=== PATIENT | female | born 1975 | race Caucasian/White ===

== ENCOUNTER 2016-10-05 10:10 | Emergency (ER) | payer BC, OTHER ==
--- NOTE | 2016-10-05 10:50 | EDDOCDS ---
Physician Documentation [facility] Name: Roxann Downey Age: 41 yrs Sex: Female : 1975 Arrival Date: 10/05/2016 Time: 10:10 Bed Triage 1 Private MD: Aparna Sinclair PA-C. Disposition: 10/05/16 10:44 Discharged to Home/Self Care. Impression: Acute upper respiratory infections of multiple and unspecified sites, Cough. - Condition is Stable. - Discharge Instructions: Upper Respiratory Infection, Adult, Cough, Adult. - Prescriptions for Prednisone 20 mg Oral Tablet - take 1 tablet by ORAL route once daily for 5 days; 5 tablet. Guaifenesin- DM 10-100 mg/5 mL Oral Liquid - take 10 milliliter by ORAL route every 6 hours As needed; 200 milliliter. benzonatate 200 mg Oral Capsule - take 1 capsule by ORAL route 3 times per day As needed; 30 capsule. - Medication Reconciliation, Local Pharmacy Hours, Work Release Form - 2 day form. - Follow up: Emergency Department; When: As needed. Follow up: Aparna Sinclair; When: Call to arrange an appointment; Reason: Wound/Symptom Recheck, Recheck today's complaints, Continuance of care. - Problem is new. - Symptoms are unchanged. Historical: - Allergies: PENICILLINS; - Home Meds: 1. none - PMHx: none; - PSHx: none; - Social history: Smoking status: Patient states was never smoker of tobacco. No barriers to communication noted, The patient speaks fluent Chilean, Speaks appropriately for age. - Family history: Not pertinent. - : The pt / caregiver states he / she is not on anticoagulants. Home medication list is obtained from the patient. - Exposure Risk Screening:: None identified. 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 4 in. (162.56 cm); Pain 7/10; 10:12 Body Mass Index 27.64 (73.03 kg, 162.56 cm) dem1 MDM: 10:48 Financial registration complete. pm4 Signatures: Graciela Song,RN RN kr3 Selvin Mauro, LISET PAAkilahC cc10 Bautista Pandey, Reg Reg pm4 MTDD
--- NOTE | 2016-10-05 10:50 | EDDOCDS ---
Nurse's Notes [facility] Name: Roxann Downey Age: 41 yrs Sex: Female : 1975 Arrival Date: 10/05/2016 Time: 10:10 Bed Triage 1 Private MD: Aparna Sinclair PA-C. Diagnosis: Acute upper respiratory infections of multiple and unspecified sites;Cough Presentation: 10/05 10:15 Presenting complaint: Patient states: cough began last night. kr3 10:15 Adult Sepsis Screening: The patient does not have new or worsening altered mentation. kr3 Patient's respiratory rate is less than 22. Systolic blood pressure is greater than 100. Patient has a qSOFA score of 0- Negative Sepsis Screen. Suicide/Homicide risk assessment- the patient denies having any suicidal and/or homicidal ideations and does not present with any other emotional, behavioral or mental health complaints. 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 Transition of care: patient was not received from another setting of care. 10:15 Acuity: ROXANN Level 4 kr3 10:15 Method Of Arrival: Walkin/Carried/Asstd kr3 Triage Assessment: 10:16 General: Appears in no apparent distress, comfortable, Behavior is cooperative. Pain: kr3 Pain currently is 0 out of 10 on a pain scale. At worst was 6 out of 10 on a pain scale. Aggravated by cough or breathes. HIV screening NA for this visit Offered previously. Respiratory: Onset: The symptoms/episode began/occurred yesterday, Airway is patent Respiratory effort is even, unlabored, Reports shortness of breath on exertion cough that is productive, pain with cough. Derm: Skin is normal. 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 none - PMHx: none; - PSHx: none; - Social history: Smoking status: Patient states was never smoker of tobacco. No barriers to communication noted, The patient speaks fluent Beninese, Speaks appropriately for age. - Family history: Not pertinent. - : The pt / caregiver states he / she is not on anticoagulants. Home medication list is obtained from the patient. - Exposure Risk Screening:: None identified. Screenin:48 Screening information is obtained from the patient. Fall risk: No risks identified. kr3 Assistance ADL's: requires no assistance with activities of daily living. Abuse/DV Screen: The patient / caregiver reports he/she is: not in a situation that causes fear, pain or injury. Nutritional screening: No deficits noted. Advance Directives: Currently, there is no health care proxy. home support is adequate. Assessment: 10:48 Cardiovascular: Chest pain is denied. Respiratory: Respiratory effort is even, kr3 unlabored, Breath sounds are clear bilaterally. Vital Signs: 10:12 BP 134 / 90; Pulse 69; Resp 18; Temp 97.3(O); Pulse Ox 100% on R/A; Weight 73.03 kg; dem1 Height 5 ft. 4 in. (162.56 cm); Pain 7/10; 10:12 Body Mass Index 27.64 (73.03 kg, 162.56 cm) dem1 Vitals: 10:12 Log In Time: October 05, 2016 at 10:10. RN notified that patient meets Red Flag dem1 criteria. ED Course: 10:12 Patient visited by Ronald Parra. dem1 10:12 Aparna Sinclair is Private Physician. dem1 10:12 Patient moved to Waiting dem1 10:16 Triage Initiated kr3 10:32 Sel[facility] cc10 10:32 Apryl Cisneros MD is Attending Physician. cc10 10:37 Patient moved to Triage 1 dsf 10:38 Patient visited by Selvin Mauro PA-C. cc10 10:38 Patient visited by Selvin Mauro PA-C. cc10 10:44 Aparna Sinclair is Referral Physician. cc10 10:48 The patient / caregiver is instructed regarding the plan of care and ED course. Patient kr3 has correct armband on for positive identification. 10:48 No IV's were initiated during this patient's visit. No procedures done that require kr3 assistance. Order Results: There are currently no results for this order. Outcome: 10:44 Discharge ordered by Provider. cc10 10:48 Discharge Assessment: patient administered narcotics - no. The following High Risk kr3 Discharge criteria are identified: None. Discharged to home ambulatory. Condition: stable. Discharge instructions given to patient, Instructed on discharge instructions, follow up and referral plans. medication usage, Demonstrated understanding of instructions, medications, Pt was receptive of discharge instructions/ teaching. Prescriptions given X 3. No special radiology studies were completed. Property sent home with patient. 10:49 Patient left the ED. sergio3 Signatures: Graciela Song,RN RN sergio3 Yanira Jordan RN RN Ronald Luther1 Selvin Mauro, PA-C PA-C cc10 MTDD
--- NOTE | 2016-10-07 11:53 | EDDOCDS ---
Nurse's Notes [facility] Name: Roxann Downey Age: 41 yrs Sex: Female : 1975 Arrival Date: 10/05/2016 Time: 10:10 Bed Triage 1 Private MD: Aparna Sinclair PA-C. Diagnosis: Acute upper respiratory infections of multiple and unspecified sites;Cough Presentation: 10/05 10:15 Presenting complaint: Patient states: cough began last night. kr3 10:15 Adult Sepsis Screening: The patient does not have new or worsening altered mentation. kr3 Patient's respiratory rate is less than 22. Systolic blood pressure is greater than 100. Patient has a qSOFA score of 0- Negative Sepsis Screen. Suicide/Homicide risk assessment- the patient denies having any suicidal and/or homicidal ideations and does not present with any other emotional, behavioral or mental health complaints. 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 Transition of care: patient was not received from another setting of care. 10:15 Acuity: ROXANN Level 4 kr3 10:15 Method Of Arrival: Walkin/Carried/Asstd kr3 Triage Assessment: 10:16 General: Appears in no apparent distress, comfortable, Behavior is cooperative. Pain: kr3 Pain currently is 0 out of 10 on a pain scale. At worst was 6 out of 10 on a pain scale. Aggravated by cough or breathes. HIV screening NA for this visit Offered previously. Respiratory: Onset: The symptoms/episode began/occurred yesterday, Airway is patent Respiratory effort is even, unlabored, Reports shortness of breath on exertion cough that is productive, pain with cough. Derm: Skin is normal. 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 none - PMHx: none; - PSHx: none; - Social history: Smoking status: Patient states was never smoker of tobacco. No barriers to communication noted, The patient speaks fluent Nauruan, Speaks appropriately for age. - Family history: Not pertinent. - : The pt / caregiver states he / she is not on anticoagulants. Home medication list is obtained from the patient. - Exposure Risk Screening:: None identified. Screenin:48 Screening information is obtained from the patient. Fall risk: No risks identified. kr3 Assistance ADL's: requires no assistance with activities of daily living. Abuse/DV Screen: The patient / caregiver reports he/she is: not in a situation that causes fear, pain or injury. Nutritional screening: No deficits noted. Advance Directives: Currently, there is no health care proxy. home support is adequate. Assessment: 10:48 Cardiovascular: Chest pain is denied. Respiratory: Respiratory effort is even, kr3 unlabored, Breath sounds are clear bilaterally. Vital Signs: 10:12 BP 134 / 90; Pulse 69; Resp 18; Temp 97.3(O); Pulse Ox 100% on R/A; Weight 73.03 kg; dem1 Height 5 ft. 4 in. (162.56 cm); Pain 7/10; 10:12 Body Mass Index 27.64 (73.03 kg, 162.56 cm) dem1 Vitals: 10:12 Log In Time: October 05, 2016 at 10:10. RN notified that patient meets Red Flag dem1 criteria. ED Course: 10:12 Patient visited by Ronald Parra. dem1 10:12 Aparna Sinclair is Private Physician. dem1 10:12 Patient moved to Waiting dem1 10:16 Triage Initiated kr3 10:32 Selvin Mauro PA-C is PHCP. cc10 10:32 Apryl Cisneros MD is Attending Physician. cc10 10:37 Patient moved to Triage 1 dsf 10:38 Patient visited by Selvin Mauro PA-C. cc10 10:38 Patient visited by Selvin Mauro PA-C. cc10 10:44 Aparna Sinclair is Referral Physician. cc10 10:48 The patient / caregiver is instructed regarding the plan of care and ED course. Patient kr3 has correct armband on for positive identification. 10:48 No IV's were initiated during this patient's visit. No procedures done that require kr3 assistance. 11:06 [facility] Payment Agreement was scanned into [employer] and attached to record. pm4 01 07:48 T-Sheet-- Draft Copy was scanned into [employer] and attached to record. gb Order Results: There are currently no results for this order. Outcome: 10/05 10:44 Discharge ordered by Provider. cc10 10:48 Discharge Assessment: patient administered narcotics - no. The following High Risk kr3 Discharge criteria are identified: None. Discharged to home ambulatory. Condition: stable. Discharge instructions given to patient, Instructed on discharge instructions, follow up and referral plans. medication usage, Demonstrated understanding of instructions, medications, Pt was receptive of discharge instructions/ teaching. Prescriptions given X 3. No special radiology studies were completed. Property sent home with patient. 10:49 Patient left the ED. kr3 Signatures: Rasheeda Rey, Reg Reg gb Graciela Song RN RN kr3 Yanira Jordan RN RN peef Ronald Parra dem1 Selvin Mauro, PA-C PA-C cc10 Bautista Pandey, Reg Reg pm4 Chart Complete MTDD
--- NOTE | 2016-10-07 11:53 | EDDOCDS ---
Physician Documentation [facility] Name: Roxann Downey Age: 41 yrs Sex: Female : 1975 Arrival Date: 10/05/2016 Time: 10:10 Bed Triage 1 Private MD: Aparna Sinclair PA-C. Disposition: 10/05/16 10:44 Discharged to Home/Self Care. Impression: Acute upper respiratory infections of multiple and unspecified sites, Cough. - Condition is Stable. - Discharge Instructions: Upper Respiratory Infection, Adult, Cough, Adult. - Prescriptions for Prednisone 20 mg Oral Tablet - take 1 tablet by ORAL route once daily for 5 days; 5 tablet. Guaifenesin- DM 10-100 mg/5 mL Oral Liquid - take 10 milliliter by ORAL route every 6 hours As needed; 200 milliliter. benzonatate 200 mg Oral Capsule - take 1 capsule by ORAL route 3 times per day As needed; 30 capsule. - Medication Reconciliation, Local Pharmacy Hours, Work Release Form - 2 day form. - Follow up: Emergency Department; When: As needed. Follow up: Aparna Sinclair; When: Call to arrange an appointment; Reason: Wound/Symptom Recheck, Recheck today's complaints, Continuance of care. - Problem is new. - Symptoms are unchanged. Historical: - Allergies: PENICILLINS; - Home Meds: 1. none - PMHx: none; - PSHx: none; - Social history: Smoking status: Patient states was never smoker of tobacco. No barriers to communication noted, The patient speaks fluent Tuvaluan, Speaks appropriately for age. - Family history: Not pertinent. - : The pt / caregiver states he / she is not on anticoagulants. Home medication list is obtained from the patient. - Exposure Risk Screening:: None identified. 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 4 in. (162.56 cm); Pain 7/10; 10:12 Body Mass Index 27.64 (73.03 kg, 162.56 cm) dem1 MDM: 10:48 Financial registration complete. pm4 11:06 [facility] Payment Agreement was scanned into [employer] and attached to record. pm4 10/06 07:48 T-Sheet-- Draft Copy was scanned into [employer] and attached to record. gb Signatures: Rasheeda Rey, Reg Reg gb Graciela Song,RN RN kr3 Selvin Mauro, PAAkilahC PA-C cc10 Bautista Pandey, Reg Reg pm4 The chart was reviewed and I authenticate all verbal orders and agree with the evaluation and treatment provided.Attachments: 10/05 11:06 [facility] Payment Agreement pm4 10/06 07:48 T-Sheet-- Draft Copy gb Chart Complete MTDD
--- NOTE | 2016-10-07 11:53 | EDDOCDS ---
Physician Documentation [facility] Name: Roxann Downey Age: 41 yrs Sex: Female : 1975 Arrival Date: 10/05/2016 Time: 10:10 Bed Triage 1 Private MD: Aparna Sinclair PA-C. Disposition: 10/05/16 10:44 Discharged to Home/Self Care. Impression: Acute upper respiratory infections of multiple and unspecified sites, Cough. - Condition is Stable. - Discharge Instructions: Upper Respiratory Infection, Adult, Cough, Adult. - Prescriptions for Prednisone 20 mg Oral Tablet - take 1 tablet by ORAL route once daily for 5 days; 5 tablet. Guaifenesin- DM 10-100 mg/5 mL Oral Liquid - take 10 milliliter by ORAL route every 6 hours As needed; 200 milliliter. benzonatate 200 mg Oral Capsule - take 1 capsule by ORAL route 3 times per day As needed; 30 capsule. - Medication Reconciliation, Local Pharmacy Hours, Work Release Form - 2 day form. - Follow up: Emergency Department; When: As needed. Follow up: Aparna Sinclair; When: Call to arrange an appointment; Reason: Wound/Symptom Recheck, Recheck today's complaints, Continuance of care. - Problem is new. - Symptoms are unchanged. Historical: - Allergies: PENICILLINS; - Home Meds: 1. none - PMHx: none; - PSHx: none; - Social history: Smoking status: Patient states was never smoker of tobacco. No barriers to communication noted, The patient speaks fluent Brazilian, Speaks appropriately for age. - Family history: Not pertinent. - : The pt / caregiver states he / she is not on anticoagulants. Home medication list is obtained from the patient. - Exposure Risk Screening:: None identified. 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 4 in. (162.56 cm); Pain 7/10; 10:12 Body Mass Index 27.64 (73.03 kg, 162.56 cm) dem1 MDM: 10:48 Financial registration complete. pm4 11:06 [facility] Payment Agreement was scanned into [employer] and attached to record. pm4 10/06 07:48 T-Sheet-- Draft Copy was scanned into [employer] and attached to record. gb Signatures: Rasheeda Rey, Reg Reg gb Graciela Song,RN RN kr3 Selvin Mauro, PAAkilahC PA-C cc10 Bautista Pandey, Reg Reg pm4 The chart was reviewed and I authenticate all verbal orders and agree with the evaluation and treatment provided.Attachments: 10/05 11:06 [facility] Payment Agreement pm4 10/06 07:48 T-Sheet-- Draft Copy gb Chart Complete MTDD
== END 2016-10-05 10:49 | disposition home or self-care (01) ==
LOC: M ED 10:10
DX: J06.9 Acute upper respiratory infection, unspecified (principal); R05 Cough; Z88.0 Allergy status to penicillin

== ENCOUNTER → 2017-05-11 | Outpatient (REF) | payer BC | LOC: M LAB REF 16:00 | PROVIDERS: ATTEND Physician Assistant Medical | DX: N76.0 Acute vaginitis (principal); R31.9 Hematuria, unspecified ==

== ENCOUNTER → 2017-07-06 | Outpatient (CLI) | payer BC ==
[2017-07-06 09:57] LABS: BASO # 0.1 10^3/uL (0.0-0.2); BASO % 0.9 % (0.0-1.0); EOS # 0.2 10^3/uL (0.0-0.50); EOS % 2.3 % (0.0-3.0); IMMATURE GRANULOCYTE % 0.6 % (0-0); LYMPH # 1.9 10^3/uL (1.5-4.5); LYMPH % 26.9 % (24.0-44.0); MEAN CORPUSCULAR HEMOGLOBIN 28.4 pg (27.0-33.0); MEAN CORPUSCULAR HGB CONC 32.9 g/dl (32.0-36.5); MEAN CORPUSCULAR VOLUME 86.1 fl (80.0-96.0); MONO # 0.4 10^3/uL (0.0-0.8); MONO % 5.1 % (0.0-5.0); NEUTROPHILS # 4.5 10^3/uL (1.8-7.7); NEUTROPHILS % 64.2 % (36.0-66.0); PLATELET COUNT, AUTOMATED 250 10^3/uL (150-450); RED CELL DISTRIBUTION WIDTH 13.1 % (11.5-14.5)
[2017-07-06 10:16] LABS: ALBUMIN 3.8 GM/DL (3.2-5.2); ALBUMIN/GLOBULIN RATIO 1.15 (1.00-1.93); ALKALINE PHOSPHATASE 100 U/L (45-117); ALT/SGPT 21 U/L (12-78); ANION GAP 5 MEQ/L (8-16); AST/SGOT 9 U/L (15-37); BILIRUBIN,TOTAL 0.5 MG/DL (0.2-1.0); BLOOD UREA NITROGEN 14 MG/DL (7-18); CALCIUM LEVEL 8.5 MG/DL (8.5-10.1); CARBON DIOXIDE LEVEL 29 MEQ/L (21-32); CHLORIDE LEVEL 106 MEQ/L (98-107); CHOLESTEROL LEVEL 205 MG/DL (<200); CREATININE FOR GFR 0.69 MG/DL (0.55-1.02); FREE T4 0.93 NG/DL (0.76-1.46); GLOMERULAR FILTRATION RATE > 60.0 (>58); GLUCOSE, FASTING 86 MG/DL (70-105); POTASSIUM SERUM 4.7 MEQ/L (3.5-5.1); SODIUM LEVEL 140 MEQ/L (136-145); TOTAL PROTEIN 7.1 GM/DL (6.4-8.2); TRIGLYCERIDES LEVEL 200 MG/DL (<150)
== END ==
LOC: M LAB 08:50
PROVIDERS: ATTEND Physician Assistant Medical
DX: R07.89 Other chest pain (principal)

== ENCOUNTER → 2017-11-14 | Outpatient (REF) | payer BC ==
[2017-11-14 19:50] LABS: CHLAMYDIA DNA AMPLIFICATION NEGATIVE (NEGATIVE); GC DNA AMPLIFICATION NEGATIVE (NEGATIVE)
== END ==
LOC: M LAB REF 17:11
DX: N76.0 Acute vaginitis (principal)
CPT/HCPCS: 87077